=== PATIENT | male | born 1935 | race Caucasian/White ===

== ENCOUNTER 2017-06-14 08:50 | Inpatient (IN) ==
[~2017-06-14 08:50] MED LIST: DEXAMETHASONE 0.1% EACH EYE ONE; EPHEDRINE 50mg/ml INJECTION IM ONE; EYE EACH EYE ONE; FentaNYL 100 MCG/2 ML INJECTION IVP ONE; GLYCOPYRROLATE 0.4 MG/2 ML INJECTION IVP ONE; HYDRALAZINE 20 MG/ML INJECTION IVP ONE; LACRI-LUBE EYE OINT 3.5gm EACH EYE ONE; LIDOCAINE 2% JELLY Tube 30ml MM ONE; PROPOFOL 200 MG/20 ML INJECTION IVP ONE; ROCURONIUM 50 MG/5 ML INJECTION IVP ONE; SUCCINYLCHOLINE 20mg/mL 10mL INJECTION IVP ONE
[2017-06-14 09:06] VITALS: BMI 27.8
[2017-06-14] MEDS: LR 1,000 ML IV SCH ×2 (09:50→15:24)
[2017-06-14] MEDS ORDERED: NS 1,000 ML IV SCH ×2 (10:00→18:39)
--- NOTE | 2017-06-14 11:07 | Anesthesia Preoperative Report ---
Anesthesia Preoperative Record - Date and Time Date: 06/14/17 Preoperative Diagnosis: Colon Cancer. C18.9 Proposed Procedure: robotic sigmoid colon resection. possible low anterior. ureteral catheter insertion. NPO Since Date: 06/14/17 NPO Since Time: 00:00 Allergies/Adverse Reactions: Allergies Allergy/AdvReac Type Severity Reaction Status Date / Time SUSU Inhibitors Allergy Unknown Verified 06/14/17 09:27 benazepril Allergy Unknown Verified 06/14/17 09:27 amoxicillin AdvReac Intermediate DIZZY Verified 06/14/17 09:27 Iwnvkis-Ydk-Vlb Reductase AdvReac Intermediate LEG Verified 06/14/17 09:27 Inhibitor DISCOMFORT - Vital Signs Vital Signs: Temperature 97.7 F 06/14/17 09:05 Pulse Rate 58 L 06/14/17 09:05 Respiratory Rate 18 06/14/17 09:05 Blood Pressure 124/97 H 06/14/17 09:05 Pulse Oximetry 96 06/14/17 09:05 Oxygen Delivery Method Room Air Height and Weight: Height 5 ft 10.5 in Weight 89.4 kg Body Mass Index 27.8 - Medications Inpatient Medications: Current Medications Heparin Sodium (Porcine) (Heparin Sq) 5,000 units SQ [employer] ONE Stop: 06/14/17 14:49 Last Admin: 06/14/17 10:55 Dose: 5,000 units Lactated Ringer's (Lactated Ringers) 1,000 mls @ 30 mls/hr IV .Q24H [facility] Last Admin: 06/14/17 09:50 Dose: 30 mls/hr Ertapenem 1 g/ Sodium Chloride 100 mls @ 200 mls/hr IV PREOP ONE Stop: 06/15/17 11:29 Sodium Chloride (Normal Saline) 1,000 mls @ 50 mls/hr IV .Q20H [facility] Last Admin: 06/14/17 10:00 Dose: 50 mls/hr Lidocaine HCl (Xylocaine-Mpf 1% Vial) 1 mg ID O ONE Stop: 06/14/17 14:44 Last Admin: 06/14/17 09:50 Dose: 1 mg Home Medications: Home Medications Medication Instructions Recorded Confirmed Type Aspirin [Adult Low Dose Aspirin EC] 81 mg PO DAILY 05/26/17 06/14/17 History Carvedilol 12.5 mg PO BID 05/26/17 06/14/17 History Cetirizine HCl [Zyrtec] 10 mg PO DAILY 05/26/17 06/14/17 History Multivitamin [Multivitamins] 1 cap PO DAILY 05/26/17 06/14/17 History [place]-3/Dha/Epa/Fish Oil [Fish Oil 3,000 mg PO BID 05/26/17 06/14/17 History 1,000 mg Softgel] Omeprazole [Prilosec] 5 mg PO DAILY 05/26/17 06/14/17 History Triamcinolone 0.1% Cream 15 G 1 applicatio TOP DAILY 05/26/17 06/14/17 History [Kenalog] Is Patient on Beta Mabel?: Yes - Medical History Respiratory: Reports: Other (some SOA with moderate exertion) Cardiovascular: Reports: Arrhythmia (frequent PAC's ), High Cholesterol, Valvular Heart Disease ("leaky valve"), Other (describes possible orthostatic hypotension recently.) Gastrointestional: Reports: Gastroesophageal Reflux Disease (well controlled with meds.), Gastrointestinal Bleeding Neuro/Musculoskeletal: Denies: HX.MS.OSAR, Back Problems, Cerebrovascular Accident, Depression, Headaches, Loss of Consciousness, Muscle Weakness, Neuromuscular Disorder, Paralysis, Paresthesia, Syncope, Seizures, Other Renal/Endocrine: DENIES: Diabetes Mellitus Type 1, Diabetes Mellitus Type 2, Renal Failure, Dialysis, Thyroid Disease, Weight Loss, Weight Gain, Other - Surgical History HEENT Surgeries: Reports: Nose Surgery (SINUS) GI Surgery/Treatments: Reports: Colonoscopy, Other (left inguinal hernia repair) Musculoskeletal Surgery/Tx: Reports: Total Knee Replacement (RIGHT), Other (R AND LEFT GREAT TOENAIL) Anesthesia Reactions: None Hx Family Anesthesia Reaction: No History of Motion Sickness: No - Social History Smoking Status: Never smoker Substance Use Type: does not use - Pertinent Findings Laboratory: CBC and BMP 06/14/17 09:29 06/14/17 09:29 BMP 06/14/17 09:29 Sodium 143 Potassium 3.9 Chloride 107 Carbon Dioxide 23 BUN 9.0 Creatinine 0.9 Glucose 105 Calcium 9.5 Liver Function 06/14/17 Range/Units 09:29 Total Bilirubin 0.70 (0.20-1.30) MG/DL AST 24 (17-59) U/L ALT 29 (21-72) U/L Alkaline Phosphatase 70 (38-126) U/L Albumin 4.5 (3.5-5.0) G/DL EKG Rhythm: Normal Sinus Rhythm, Sinus Bradycardia, Premature Atrial Contractions (with compensatory pause.) - Physical Exam Respiratory Exam: Present: lungs clear, bilateral breath sounds equal Cardiovascular Exam: Present: regular rate and rhythm, no murmur - Airway Assessment Mallampati Score: II TMD: 3 Fingerbreadths Neck Extension: fair Overall Assessment: no airway concerns - ASA ASA Score: 2 - Plan Anesthesia: General Inhalation Gases - Discussion Discussion: Discussed risks/options/alternatives of anesthesia and questions answered. Patient consents. Nursing pain assessment noted. Present for Discussion: children Attestation Statement: Prior to the delivery of any anesthetic medication, I examined the patient, developed the plan, obtained the patient's consent and discussed the risk and benefits of the procedure with the patient/guardian. - Additional Information Seen by Anesthesia: Yes
[2017-06-14] MEDS ORDERED: BUPIVACAINE 0.25%/EPI 1:200,000 30ml SDV SQ ONE (12:53)
[2017-06-14] MEDS ORDERED: FentaNYL 100 MCG/2 ML INJECTION ONE ×2 (14:17→14:52)
[2017-06-14] MEDS ORDERED: ONDANSETRON 4 MG/2 ML INJECTION IVP PRN (14:30)
[2017-06-14] MEDS ORDERED: HYDROMORPHONE 2 MG/ML INJECTION IVP PRN (14:30)
[2017-06-14] MEDS ORDERED: LIDOCAINE 1% (10mg/ml) 2mL INJ PF SDV ID ONE (14:43)
[2017-06-14] MEDS ORDERED: HEPARIN SUB-Q 5,000 UNITS/0.5 ML INJECTION SQ ONE (14:48)
[2017-06-14] MEDS ORDERED: HYDROMORPHONE 2 MG/ML INJECTION ONE (15:59)
[2017-06-14] MEDS ORDERED: INDOCYANINE GREEN 25mg INJECTION IVP ONE (16:45)
[2017-06-14] MEDS ORDERED: FLUORESCEIN IVP ONE (17:02)
--- NOTE | 2017-06-14 17:58 | General Surgery Procedure Note ---
Date of Procedure: 06/14/17 Surgeon: [employer] Chemist: Ashutosh Uribe APRN Postoperative Diagnosis: Sigmoid colon cancer, liver nodule Procedure: Robotic with conversion to open low anterior resection with splenic flexure takedown and excisional biopsy liver nodule Estimated Blood Loss: See Anesthesia Record.
[2017-06-14] MEDS ORDERED: METOCLOPRAMIDE 10mg/2ml INJECTION IVP PRN (18:39)
[2017-06-14] MEDS ORDERED: MORPHINE SULFATE 2mg INJECTION IVP PRN (18:39)
[2017-06-14] MEDS ORDERED: HYDROCODONE/APAP 5mg/325mg TABLET PO PRN (18:39)
[2017-06-14] MEDS ORDERED: HYDROMORPHONE PCA 30mg/30ml VIAL IV PRN (18:39)
--- NOTE | 2017-06-14 18:46 | Anesthesia Postoperative Note ---
- Date and Time Date: 06/14/17 Time: 18:45 - Status Patient Participated in Evaluation: Patient Participated in Person Vital Signs: Temperature 97.0 F 06/14/17 18:35 Pulse Rate 76 06/14/17 18:40 Respiratory Rate 13 06/14/17 18:40 Blood Pressure 197/86 H 06/14/17 18:40 Pulse Oximetry 94 06/14/17 18:40 Oxygen Delivery Method Room Air Oxygen Flow Rate 4 Respiratory Function: Airway Patent, Regular Respirations Cardiovascular Function: Regular Pulse Mental Status: Alert and Oriented Pain Intensity: 4 Hydration: IV Infusing Complications During Recover: None Apparent - Follow-Up Instructions Instructions: Per Surgeon
[2017-06-14] MEDS: KETOROLAC 15 MG/ML INJECTION IVP PRN (18:49)
[2017-06-14] MEDS: CARVEDILOL 12.5 MG TABLET PO SCH ×2 (19:58→20:11)
[2017-06-14] MEDS: ONDANSETRON 4 MG/2 ML INJECTION IVP PRN (20:11)
[2017-06-14] MEDS: D5-1/2NS with KCL 20mEq 1,000 ML IV SCH (23:01)
[2017-06-15] MEDS: D5-1/2NS with KCL 20mEq 1,000 ML IV SCH ×3 (07:40→17:02)
--- NOTE | 2017-06-15 07:59 | Operative Note ---
DATE OF PROCEDURE: June 14, 2017 PREOPERATIVE DIAGNOSIS: Colon cancer. POSTOPERATIVE DIAGNOSIS: Colon cancer. PROCEDURE PERFORMED 1. Placement of bilateral ureteral stents. 2. Cystoscopy. SURGEON: Cameron Nevarez MD COMPLICATIONS: None. DRAINS 1. Bilateral ureteral stents. 2. 14 [place] Evans INDICATION FOR THE PROCEDURE This is an 82-year-old male with colon cancer who is undergoing a robotic colectomy with Dr. Sanon. I was asked by Dr. Sanon to place bilateral illuminating IRIS stents to help identify the ureters during the procedure. DESCRIPTION OF PROCEDURE The patient was identified in the preoperative holding area. The procedure was explained to him and he agreed to proceed. He was taken to the operating room where he was placed supine on the operating table. General anesthesia was induced. He was then placed in dorsal lithotomy position. The genitalia were prepped and draped in the usual fashion. At this time a formal Time-out was done. All the persons in the room were in agreement* I started the procedure by introducing a rigid cystoscope in the bladder. The 2 UOs were in orthotopic position. I began on the left side. The IRIS ureteral stent was placed over a sensor wire into the right ureter. I then advanced the stent without difficulty to the double marking. Once this was done, I removed the cystoscope from the bladder, making sure the stent was still in the ureter. I then reintroduced the cystoscope and repeated the same procedure on the right side. Also, the IRIS stent was placed over the sensor wire in the right ureter. It was advanced to the double vidya. I then removed the cystoscope, making sure that both stents were still in the ureters. The electrode part was then placed in each stent in order to illuminate the stents. I then placed a 14 -Green[place]ic Evans in the bladder and secured to the two stents with a silk. This concludes the urologic portion of the procedure. The care of the patient was handed back to Dr. Sanon to perform his colectomy. NGHIA
[2017-06-15] MEDS: ENOXAPARIN 40 MG/0.4 ML INJECTION SQ SCH (08:55)
[2017-06-15] MEDS: PANTOPRAZOLE 40 MG INJECTION IVP SCH (08:55)
[2017-06-15] MEDS: TRIAMCINOLONE 0.1% CREAM 15 G TUBE TOP SCH (08:56)
[2017-06-15] MEDS: CARVEDILOL 12.5 MG TABLET PO SCH ×2 (08:56→17:23)
--- NOTE | 2017-06-15 08:57 | General Surgery Progress Note ---
Subjective Patient reports: still having pain (as expected, long midline incsioni plus trocar sites), no flatus, afebrile Narrative: In the chair this morning, complains of back pain but a pillow behind the back helped. Denies nausea. No flatus or stool. Denies chest pain, SOA. Hypertensive last evening till after the prescribed home Coreg was given. A little hypertensive again this am, Coreg has not been given yet. Urine very dark/maroon, 90 ml in the last 2 hours after he got up. He did have bilateral ureteral stents prior to resection. - Vital Signs Last Vital Signs Temp 97.8 F 06/15/17 04:01 Pulse 57 L 06/15/17 07:50 Resp 26 H 06/15/17 04:45 BP 131/63 06/15/17 04:01 Pulse Ox 97 06/15/17 04:45 - Laboratory Result Diagrams: 06/15/17 04:19 06/15/17 04:19 - Abnormal Exam Respiratory: other (crackles bilateral bases) Cardiovascular: murmur, irregular rhythm (occasional PVC otherwise RSR) Abdominal: hypoactive bowel sounds Male: other (urine dark/maroon, output 25-45/hr over the last 5-6 hours.) - Normal Exam General: no acute distress Respiratory: no labored breathing (sat 97% on room air) Abdominal: appropriately tender (long midline incision), incision(s) (dressings in tact, not removed today) Psychiatric: normal affect Assessment and Plan (1) Cancer of sigmoid colon Current Visit: Yes Status: Acute (2) HTN (hypertension) Current Visit: No Status: Chronic Qualifiers: Hypertension type: essential hypertension Qualified Code(s): I10 - Essential (primary) hypertension (3) Atelectasis pulmonary Current Visit: Yes Status: Acute (4) Cardiac arrhythmia Current Visit: No Status: Chronic Qualifiers: Arrhythmia type: other cardiac arrhythmia Qualified Code(s): I49.8 - Other specified cardiac arrhythmias (5) Hypercholesterolemia Current Visit: No Status: Chronic (6) Murmur, cardiac Current Visit: Yes Status: Chronic Plan: 06/15 POD#1 Doing well for the long difficult surgery yesterday. HTN during the night till Coreg was given. Urine very dark, from ureteral stents, cleared up after bladder irrigation. Crackles bilaterally, Sat 97% room air, encourage IS, Acapella, breathing treatment, etc, RT has been consulted Will watch the urine output/color, HTN, Resp status, etc, Daily labs. Keep in CCU today. Hospital Course Summary Disclaimer: The visit summary below is not to be considered part of the above Progress Note. Hospital Course: 06/15/17 09:19 POD#1 Doing well for the long difficult surgery yesterday. HTN during the night till Coreg was given. Urine very dark, from ureteral stents, cleared up after bladder irrigation. Crackles bilaterally, Sat 97% room air, encourage IS, Acapella, breathing treatment, etc, RT has been consulted Will watch the urine output/color, HTN, Resp status, etc, Daily labs. Sepsis Assessment - Evaluation Sepsis screening result: No Definite Risk
[2017-06-15] MEDS: ONDANSETRON 4 MG/2 ML INJECTION IVP PRN (09:28)
--- NOTE | 2017-06-15 10:19 | Operative Note ---
DATE OF PROCEDURE 06/14/2017 SURGEON Cornelio Sanon MD [employer]RE[employer] DISPATCHER Ashutosh Uribe APRN PREOPERATIVE DIAGNOSIS Adenocarcinoma involving distal sigmoid colon. POSTOPERATIVE DIAGNOSIS Adenocarcinoma involving distal sigmoid colon. PROCEDURE Attempted robotic laparoscopic low anterior with conversion to open procedure, with completion of low anterior resection, coloproctostomy, mobilization of splenic flexure, wedge liver biopsy. ANESTHESIA General endotracheal EBL AND FLUIDS Please see chart. DESCRIPTION OF PROCEDURE Mr. Roberts is an 82-year-old gentleman who recently had noted a component of some rectal bleeding. He did present to his primary care physician who appropriately proceeded with endoscopic evaluation. Unfortunately, the patient was found to have a mass at about 15-20 cm from the anal verge. This mass was highly suspicious for that of an adenocarcinoma. Biopsies were obtained from the mass and, unfortunately, did confirm the suspicion that he did indeed have a colonic malignancy. The patient did undergo preoperative evaluation including a CT scan of his chest, abdomen and pelvis. There was no evidence for metastatic disease. The patient presents today to undergo surgical management of his newly diagnosed colonic adenocarcinoma. For completeness, please refer to notes included in the patient's chart. DESCRIPTION OF PROCEDURE After informed consent was obtained, the patient was brought to the operative suite and placed on the table in lithotomy position. Ureteral stents were placed preoperatively to facilitate identification of the ureters. This portion of the procedure will be dictated by Dr. Nevarez. Once Dr. Nevarez had completed his portion of the procedure, the abdomen was prepped and draped in sterile fashion. Formal time-out was then completed. 0.25% Marcaine with epinephrine was injected just beneath the left subcostal margin. 4-5 mm incision was then made through the area of analgesia. A Veress needle was then introduced through this small incision and into the peritoneal cavity through the small left subcostal incision. Pneumoperitoneum was established to a patient pressure of 15 mmHg utilizing carbon dioxide. A 12-mm camera port was then placed about 4-5 cm cephalad and to the right of the umbilicus. Laparoscope was then inserted and one could see the Veress needle as it coursed through the anterior abdominal wall. Veress needle was then removed. An 8-mm port was then placed within the left upper quadrant. An additional 8 mm port was then placed along the left lateral abdominal wall. A 5-mm assist port was then placed within the right mid abdominal wall. Lastly, a stapler port was then placed within the right lower quadrant of the anterior abdominal wall. Each port site was preinjected with 0.25% Marcaine with epinephrine and placed under direct visualization. The patient was then placed in Trendelenburg position and rotated towards his right. One could see that there was a segment of sigmoid colon that was adherent to the left anterior abdominal wall as well as along the left lateral abdominal wall. One could also see that the sigmoid colon was fairly redundant and "turned upon itself" within the pelvis 180 degrees as a result of this redundancy. Additionally, the abdomen was explored via laparoscope. Devonte's capsule was smooth without nodularities with the exception that there was a small whitish nodule noted just to the right of the falciform ligament along the inferior edge of the right lobe of the liver. Next , the robot was then docked overlying the patient's left hip at a 45-degree angle. First, attention was focused to the sigmoid colon that was adherent to the anterior abdominal wall. It appeared that perhaps the patient had had a bout of diverticulitis in the past as a result of these intraoperative findings. Sigmoid colon was dissected away from the anterior abdominal wall as well as along the left lateral abdominal wall. Next, the redundant portion of the sigmoid colon was able be dissected away and lifted up into the upper abdomen. A Graptor retractor was placed through robotic arm 3 along the left lateral abdominal wall. Sigmoid colon was grasped via this instrument and retracted in a cephalad and lateral fashion. Fluorescence Firefly imaging was then performed. One could see the right ureter quite easily beneath the peritoneal surface. It did fluoresce quite well. One could trace the catheter as it coursed up into the bladder beneath the peritoneum utilizing fluorescence imaging. Unfortunately, the left ureteral catheter did not appear to be in the left ureter and one could not see any fluorescence in the anatomic location of the left ureter. First, attention was focused along the right mesorectum at about the level of the sacral promontory. Peritoneum was incised at this location. Presacral space was identified. A bipolar grasper was placed within the presacral space and the mesorectum was lifted anteriorly. Presacral space was then dissected out along the right lateral mesorectum posteriorly within the midportion of the mesorectum. Dissection was carried down towards the pelvic floor to the level of the peritoneal reflection. Next, the left lateral aspect of the mesorectum was then began to be dissected out carefully and meticulously. One could see the iliac vein as the mesorectum was being dissected out laterally to the left. The presacral space/propria tissue plane then began to obliterate as one began to come up onto the anatomic location of the ureter. It appeared that there perhaps were some inflammatory changes present at this location. Next, I elected to proceed with dissection along the left mesorectum. Mesorectum out laterally on the left was then incised with electrocautery. The rectum was then reflected from the patient's left to his right. Dissection was then begun cephalad to the anatomic location of the iliac vessels along the white line of Toldt. White line of Toldt was incised and the left colon was reflected medially. One could see Gerota's fascia and the colon was continued to be dissected away from Gerota's fascia and reflected medially. Unfortunately, the tissue plane between the sigmoid colon and left iliac vessels was very difficult to identify. There appeared to be some inflammatory changes present at this location. I did spend a moderate amount of time trying to identify the left ureter as the sigmoid colon was being reflected medially to the patient's left. This was unable to be accomplished and I then went back posterior to the mesorectum and again tried to dissect out the left lateral pelvic wall from a posterior to anterior fashion. Further dissection was carried out but again as one approached the iliac vessel region the tissue plane began to become more difficult to ascertain. At this time I felt that I had reached somewhat of a "stalemate" and the procedure was not progressing as rapidly as I had hoped. Given the difficulty in the progression of the procedure and the difficulty in identifying anatomy, I elected to convert to an open procedure. Robot was then undocked. Pneumoperitoneum released. A standard midline incision was then made from the pubic symphysis up to and into the epigastric region. Underlying subcutaneous tissues, fascia and peritoneum was then opened to the extent of the procedure. Next, a Codman retractor was placed to provide adequate exposure. Upon entering the abdominal wall, I was somewhat discouraged in the fact that there appeared to be only perhaps about another 5-8 mm of tissue still persisting between the posterior mesorectum dissection and the dissection that had been carried out on the patient's left along the mesorectum. Attention was focused back towards the anatomic location of the iliac vessels. With careful and meticulous dissection , I was able to dissect the sigmoid colon away from the iliac vessels. One then could identify the left ureter. The left ureter was somewhat tented up against the mesorectum and I was therefore thankful that I had converted to an open procedure. The left ureter was identified and was gently/bluntly dissected to the patient's left as the mesorectum and sigmoid colon was continued to be reflected medially. At this point in time a total mesorectal dissection had been performed circumferentially. The superior hemorrhoidal vessels remained to be intact just above the sacral promontory. Attention was then directed towards division of the proximal resection line. One could see several diverticula within the sigmoid colon region. I elected to go ahead and proceed with resection of the of the sigmoid apparent diverticular disease in conjunction with the palpable tumor which was present involving the distal sigmoid:. A point perhaps 15-20 cm proximal to the tumor was ascertained upon the mid sigmoid colon region. Small opening was then created within mesentery at this location. Colon was then transected at this location with a OBDULIO 55 stapler. Next, the mesentery to the sigmoid colon was then sequentially divided between right angle clamps towards the sacral promontory. Superior hemorrhoidal vessels were then divided between right angle clamps and doubly ligated with 0 Vicryl ties. Next, a point was then ascertained for the distal resection line. A point perhaps 8 cm beyond the visible/palpable tumor was obtained just beneath the peritoneal reflection upon the mid rectum. A small opening was then created within the mesorectum at this location. Contour stapler was then placed across the rectum at this location and fired. Next, the remaining mesorectum was then sequentially divided between right angle clamps deep within the pelvis and ligated with 0 Vicryl ties. Proximal rectum and sigmoid colon was then passed off the table as a surgical specimen. I did have the circulating nurse open the specimen on the back table. One could see the tumor clearly within the midportion of the specimen. The two staple lines were then attempted be brought forth adjacent to one another. There was some tension to get this accomplished. Therefore elected to proceed with takedown of the splenic flexure. The incision was extended further into the epigastric region. The white line of Toldt was then continued to be incised along the left pericolic gutter up to the splenic flexure. The gastrocolic ligament was then divided at the location of the splenic flexure. Splenocolic ligament was then divided with electrocautery under direct visualization. This resulted in complete mobilization of the splenic flexure. Now the proximal staple line could be brought forth into the pelvis and laid adjacent to the remaining rectum without any evidence of tension. Additionally, the left colon was continued be reflected medially off of Gerota's fascia. Next, attention was then focused towards this small nodule that was noted just to the right of falciform ligament upon the inferior edge of the liver. This small nodule that was on the order of about 5-8 mm in diameter was excised utilizing electrocautery in a standard wedge technique. This nodule was then passed off the table as a surgical specimen. Liver was hemostatic in nature. Attention was then directed towards completion of the anastomosis. Had Anesthesia give the patient 3 ml of ICG intravenously. A few moments were allowed to elapse. The da Marcia laparoscopic camera was still upon the surgical field. Utilized the camera to assess the vascular supply to the proximal staple line. The colon did fluoresce quite well down to the staple line. There was no evidence for vascular compromise. Next, attention was then directed towards the proximal staple line. Proximal staple line was transected with a knife. The edges of the colon bled indicative again of an adequate blood supply. Three Allis clamps were then placed upon the transected end of the colon. Up to a 28 mm EEA sizer was able to be placed within the colon without difficulty. 29-mm EEA stapler was then brought forth to the operative field. Anvil portion of the stapler was placed within the transected end of the colon. A pursestring suture was then placed with 2-0 Vicryl and tied securely resulting in a nice imbrication of the colonic mucosa to the anvil portion of the stapler. Next, I had my information assistant then advance the stapler through the patient's anal verge and up to the distal staple line upon the rectum. The trocar portion of the stapler was then allowed to exit just anterior to the staple line within the midportion of the rectum. Anvil portion was then attached to the trocar portion and tightened to the appropriate tension and fired. Stapler was then released and removed from the patient's anal verge. Two complete doughnuts were present within the stapler. Saline was then placed within the pelvis. I then had my information assistant place a rigid proctoscope within the rectum and insufflate the colon until the anastomosis was quite taut with air. At no point in time was there any evidence for extravasation of air bubbles from the anastomosis, i.e. the anastomosis was airtight. Air was then released through the rigid proctoscope and the rigid proctoscope was then removed. Prior areas of dissection were inspected and found to be hemostatic in nature. Attention was then directed towards closure. Sponge count, instrument count and needle count were performed and found to be correct. New gowns and gloves were obtained. Fascia was closed in a running fashion with #1 PDS. Skin was then closed with rubén. The fascia at the camera port and the stapler port was closed in a [id number] fashion with 0 Vicryl. The patient has awakened from his anesthetic and currently is in ICU in stable condition. Additionally, it should be noted that Ashutosh Uribe APRN, was present throughout the entire case and played a pivotal role in providing assistance and exposure during the course of the procedure. [facility]
[2017-06-15] MEDS ORDERED: ERTAPENEM 1 G in NS 100 ML IV ONE (11:00)
--- NOTE | 2017-06-15 14:20 | Progress Note ---
DATE 06/15/2017 FINDINGS Mr. Roberts this morning was in good spirits. He states that he does have some incisional discomfort which is aggravated by doing incentive spirometry. He did not appear to be in acute distress. VITALS: Afebrile. Normotensive. Please refer to EMR. OUTPUT: Urinary output has been marginal. CHEST: Clear to auscultation. HEART: Rate and rhythm. ABDOMEN: Soft. Incisional tenderness noted upon palpation. LABORATORY/RADIOGRAPH EVALUATION White count was elevated at 18.1 - most likely stress related from surgery. Hemoglobin stable at 13.5. BMP obtained and found to be without marked abnormalities. ASSESSMENT 82-year-old gentleman status post low anterior resection, coloproctostomy, takedown and mobilization of splenic flexure, wedge liver biopsy. Overall patient doing well. PLAN Will give a normal saline bolus secondary to his low urinary output. If patient does not respond to a fluid bolus, will then give diuretic. Will begin clear liquids. Otherwise, continue with current care. I am pleased with the patient's appearance this morning. NGHIA
[2017-06-15] MEDS: KETOROLAC 15 MG/ML INJECTION IVP PRN (15:55)
[2017-06-15] MEDS ORDERED: BUMETANIDE 2.5mg/10ml INJECTION IVP ONE (19:10)
[2017-06-16] MEDS: D5-1/2NS with KCL 20mEq 1,000 ML IV SCH ×3 (01:30→18:03)
[2017-06-16] MEDS ORDERED: MAG-AL + SIM ORAL LIQUID 30ml PO PRN (03:01)
[2017-06-16] MEDS ORDERED: SALINE FLUSH 10ml SYRINGE IV PRN (03:15)
[2017-06-16] MEDS ORDERED: Bisacodyl EC TAB 5 MG TABLET PO ONE (07:49)
--- NOTE | 2017-06-16 07:53 | General Surgery Progress Note ---
Subjective Patient reports: still having pain, pain is less, tolerating liquids well, no flatus, no bowel movement, other ("heartburn" relieved with Maalox) Narrative: He is real "jumpy", tenses up even before the stethoscope touches the abd or chest. Denies chest pain, SOA. Sats 95% room air, crackles at the bases, using IS and Acapella. Ambulating the length of the CCU. Urine output picked up after fluid bolus then Bumex and is now clear light yellow, > 60 ml/hr for the last 10 hours. - Vital Signs Last Vital Signs Temp 97.8 F 06/16/17 04:00 Pulse 76 06/16/17 06:00 Resp 15 06/16/17 06:00 BP 151/72 H 06/16/17 06:00 Pulse Ox 95 06/16/17 06:00 - Laboratory Result Diagrams: 06/16/17 04:35 06/16/17 04:35 - Abnormal Exam Respiratory: other (crackles bilateral bases) Cardiovascular: murmur Abdominal: hypoactive bowel sounds (very rare), voluntary guarding (tenses up even before stethoscope touches abd and states "I'm just jumpy.") - Normal Exam General: no acute distress Cardiovascular: regular rhythm (with only occasional rare PVC and PAC), regular rate Abdominal: appropriately tender, incision(s) (dressings intact, not removed today.) Assessment and Plan (1) Cancer of sigmoid colon Current Visit: Yes Status: Acute (2) HTN (hypertension) Current Visit: No Status: Chronic Qualifiers: Hypertension type: essential hypertension Qualified Code(s): I10 - Essential (primary) hypertension (3) Atelectasis pulmonary Current Visit: Yes Status: Acute (4) Cardiac arrhythmia Current Visit: No Status: Chronic Qualifiers: Arrhythmia type: other cardiac arrhythmia Qualified Code(s): I49.8 - Other specified cardiac arrhythmias (5) Hypercholesterolemia Current Visit: No Status: Chronic (6) Murmur, cardiac Current Visit: Yes Status: Chronic Plan: He is making progress, but no bowel activity. Denies nausea, will allow Breeze and Boost with the clear liquids. Dulcolax tabs PO x1 today, hope to gently stimulate bowel activity. VSS, Labs reviewed He is ambulating the length of the CCU Will consider transfer to surgical floor. PT/OT ordered for strength and endurance. Hospital Course Summary Disclaimer: The visit summary below is not to be considered part of the above Progress Note. Hospital Course: 06/15/17 09:19 POD#1 Doing well for the long difficult surgery yesterday. HTN during the night till Coreg was given. Urine very dark, from ureteral stents, cleared up after bladder irrigation. Crackles bilaterally, Sat 97% room air, encourage IS, Acapella, breathing treatment, etc, RT has been consulted Will watch the urine output/color, HTN, Resp status, etc, Daily labs. 06/15 82-year-old gentleman status post low anterior resection, coloproctostomy, takedown and mobilization of splenic flexure, wedge liver biopsy. Overall patient doing well. PLAN Will give a normal saline bolus secondary to his low urinary output. If patient does not respond to a fluid bolus, will then give diuretic. Will begin clear liquids. Otherwise, continue with current care. I am pleased with the patient's appearance this morning. 06/16/17 07:56 06/16/17 07:59 POD #2 He is making progress, but no bowel activity. Denies nausea, will allow Breeze and Boost with the clear liquids. Dulcolax tabs PO x1 today, hope to gently stimulate bowel activity. VSS, Labs reviewed He is ambulating the length of the CCU Will consider transfer to surgical floor. PT/OT ordered for strength and endurance. Sepsis Assessment - Evaluation Sepsis screening result: No Definite Risk
[2017-06-16] MEDS: CARVEDILOL 12.5 MG TABLET PO SCH ×2 (08:29→17:15)
[2017-06-16] MEDS: CETIRIZINE 10 MG TABLET PO SCH (08:29)
[2017-06-16] MEDS: ENOXAPARIN 40 MG/0.4 ML INJECTION SQ SCH (08:30)
[2017-06-16] MEDS: PANTOPRAZOLE 40 MG INJECTION IVP SCH (08:31)
[2017-06-16] MEDS: TRIAMCINOLONE 0.1% CREAM 15 G TUBE TOP SCH ×2 (08:31→08:42)
--- NOTE | 2017-06-16 14:02 | Progress Note ---
DATE 06/16/2017 FINDINGS Mr. Roberts states he is feeling better today. He is having less incisional discomfort. EXAM VITALS: Afebrile. Normotensive. Please refer to EMR. CHEST: Clear to auscultation bilaterally. HEART: Regular rate and rhythm. Normal S1, S2, without gallops, murmurs or clicks. ABDOMEN: Palpation of the abdomen still reveals incisional tenderness. There is no evidence for guarding or rebound. LABORATORY/RADIOGRAPHIC EVALUATION The patient had a CBC today and his white count is on a downward trend at 11.4. Hemoglobin overall is stable at 12.1. BMP obtained and found be without marked abnormalities. ASSESSMENT 82-year-old gentleman status post low anterior resection with coloproctostomy, mobilization of splenic flexure, and wedge liver biopsy secondary to invasive adenocarcinoma involving rectosigmoid region. Patient stable/improving. PLAN Will continue with current care. Will likely transfer the patient out of ICU tomorrow and advance diet slowly. I'm overall pleased with the patient's progress at this time. [facility]
[2017-06-17] MEDS: D5-1/2NS with KCL 20mEq 1,000 ML IV SCH ×4 (01:57→23:11)
[2017-06-17] MEDS ORDERED: IBUPROFEN 600 MG TABLET PO PRN (07:36)
[2017-06-17] MEDS: TRIAMCINOLONE 0.1% CREAM 15 G TUBE TOP SCH (08:01)
[2017-06-17] MEDS: CETIRIZINE 10 MG TABLET PO SCH (08:01)
[2017-06-17] MEDS: ENOXAPARIN 40 MG/0.4 ML INJECTION SQ SCH (09:20)
[2017-06-17] MEDS: POLYETHYL GLYCOL 3350 17gm PACKET PO SCH ×2 (09:22→09:32)
[2017-06-17] MEDS: PANTOPRAZOLE 40 MG INJECTION IVP SCH (09:22)
[2017-06-17] MEDS: CARVEDILOL 12.5 MG TABLET PO SCH ×2 (09:22→18:16)
--- NOTE | 2017-06-17 11:31 | General Surgery Progress Note ---
Subjective Patient reports: feels better, pain is less, flatus, no bowel movement Narrative: In good spirits. He coughed up a thick yellow chunk of mucous, will send this for culture. He is faithfully using IS and Acapella. Denies nausea, chest pain, SOA. Is still quite "jumpy", just my the back of my hand brushing across the lateral abd to move blanket away made him jump and tense and grab for the SENIOR MECHANICAL TECHNICIAN. - Vital Signs Last Vital Signs Temp 97.1 F 06/17/17 08:00 Pulse 70 06/17/17 08:16 Resp 16 06/17/17 08:00 BP 176/72 H 06/17/17 08:00 Pulse Ox 96 06/17/17 08:00 - Laboratory Result Diagrams: 06/17/17 04:16 06/17/17 04:16 - Abnormal Exam Respiratory: other (crackles bilateral bases) Cardiovascular: murmur Abdominal: voluntary guarding - Normal Exam Abdominal: BS normo active x4, soft, appropriately tender, incision(s) ( dressing removed, dried blood on dressing with caudad most 1/4 mostly saturated , dry gauze applied) Assessment and Plan (1) Cancer of sigmoid colon Current Visit: Yes Status: Acute (2) HTN (hypertension) Current Visit: No Status: Chronic Qualifiers: Hypertension type: essential hypertension Qualified Code(s): I10 - Essential (primary) hypertension (3) Atelectasis pulmonary Current Visit: Yes Status: Acute (4) Cardiac arrhythmia Current Visit: No Status: Chronic Qualifiers: Arrhythmia type: other cardiac arrhythmia Qualified Code(s): I49.8 - Other specified cardiac arrhythmias (5) Hypercholesterolemia Current Visit: No Status: Chronic (6) Murmur, cardiac Current Visit: Yes Status: Chronic Plan: POD #3 VSS, WBC 8.7, HGB 11.6 Sputum culture collected today, thick yellow/etienne mucous Incision with old blood, no erythema or ecchymosis at this time Evans DC'd this am and he is voiding without difficulty. Tolerating full liquid diet, good bowel sounds, will decrease IVF advance to regular for dinner. DC SENIOR MECHANICAL TECHNICIAN PT recommends daily IP therapy for strengthening and endurance. Hospital Course Summary Disclaimer: The visit summary below is not to be considered part of the above Progress Note. Hospital Course: 06/15/17 09:19 POD#1 Doing well for the long difficult surgery yesterday. HTN during the night till Coreg was given. Urine very dark, from ureteral stents, cleared up after bladder irrigation. Crackles bilaterally, Sat 97% room air, encourage IS, Acapella, breathing treatment, etc, RT has been consulted Will watch the urine output/color, HTN, Resp status, etc, Daily labs. 06/15 82-year-old gentleman status post low anterior resection, coloproctostomy, takedown and mobilization of splenic flexure, wedge liver biopsy. Overall patient doing well. PLAN Will give a normal saline bolus secondary to his low urinary output. If patient does not respond to a fluid bolus, will then give diuretic. Will begin clear liquids. Otherwise, continue with current care. I am pleased with the patient's appearance this morning. 06/16/17 07:56 06/16/17 07:59 POD #2 He is making progress, but no bowel activity. Denies nausea, will allow Breeze and Boost with the clear liquids. Dulcolax tabs PO x1 today, hope to gently stimulate bowel activity. VSS, Labs reviewed He is ambulating the length of the CCU Will consider transfer to surgical floor. PT/OT ordered for strength and endurance. 06/17/17 11:44 POD #3 VSS, WBC 8.7, HGB 11.6 Sputum culture collected today, thick yellow/etienne mucous Incision with old blood, no erythema or ecchymosis at this time Evans DC'd this am and he is voiding without difficulty. Tolerating full liquid diet, good bowel sounds, will decrease IVF advance to regular for dinner. DC SENIOR MECHANICAL TECHNICIAN PT recommends daily IP therapy for strengthening and endurance. 06/17/17 11:47 06/17/17 11:49 Sepsis Assessment - Evaluation Sepsis screening result: No Definite Risk
[2017-06-18] MEDS: D5-1/2NS with KCL 20mEq 1,000 ML IV SCH (03:32)
--- NOTE | 2017-06-18 06:52 | Progress Note ---
DATE 06/17/2017 FINDINGS Mr. Roberts is in good spirits this evening. He states he did have a small bowel movement. He reports having a little less abdominal discomfort--a little less incisional discomfort. VITALS: Afebrile. Normotensive. Please refer to EMR. ABDOMEN: Soft. Incisional tenderness present. No evidence for rebound or guarding. Incisions are clean, dry and intact. LABORATORY/RADIOGRAPH EVALUATION The patient had a CBC today and his white count continues on a downward trend to 8.7. Overall, hemoglobin is stable at 11.6. BMP obtained and found to be essentially within normal limits. ASSESSMENT Status post low anterior resection with coloproctostomy, mobilization of splenic flexure, wedge liver biopsy. The patient is doing well with ongoing improvement. PLAN Pathology did return today. The patient was found to have invasive moderately- differentiated colonic adenocarcinoma. No metastasis identified in 12 regional lymph nodes. 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 No evidence for atypia or malignant neoplasm. Will increase the patient's diet to a regular diet. Armando Evans. Will begin p.o. pain meds. Hopefully, within the next 24-48 hours, the patient will be tolerating a regular diet, his pain will be controlled with p.o. pain meds and he will be able to be discharged at that time. I am pleased with the patient's progress. NGHIA
[2017-06-18 08:28] VITALS: RESP 16; O2SAT 98
--- NOTE | 2017-06-18 09:03 | Discharge Instructions ---
Discharge Plan - Med Rec/Dispo Referrals/Follow Up: Cornelio Sanon MD [Physician] - 06/30/17 2:30 pm Prescriptions: New Hydrocodone/APAP 5/325 [[place] 5/325] 1 - 2 tab PO Q5H PRN #30 tablet PRN Reason: Pain Continue Aspirin [Adult Low Dose Aspirin EC] 81 mg PO DAILY Omeprazole [Prilosec] 5 mg PO DAILY Triamcinolone 0.1% Cream 15 G [Kenalog] 1 applicatio TOP DAILY Carvedilol 12.5 mg PO BID Cetirizine HCl [Zyrtec] 10 mg PO DAILY [place]-3/Dha/Epa/Fish Oil [Fish Oil 1,000 mg Softgel] 3,000 mg PO BID Multivitamin [Multivitamins] 1 cap PO DAILY Discontinued cephALEXin [Keflex] 500 mg PO TID #21 capsule - Disposition 01 Discharged Home, Self-Care
[2017-06-18] MEDS: PANTOPRAZOLE 40 MG INJECTION IVP SCH (09:24)
[2017-06-18] MEDS: POLYETHYL GLYCOL 3350 17gm PACKET PO SCH (09:24)
[2017-06-18] MEDS: ENOXAPARIN 40 MG/0.4 ML INJECTION SQ SCH (09:25)
[2017-06-18] MEDS: CARVEDILOL 12.5 MG TABLET PO SCH (09:26)
[2017-06-18] MEDS: CETIRIZINE 10 MG TABLET PO SCH (09:26)
[2017-06-18] MEDS: TRIAMCINOLONE 0.1% CREAM 15 G TUBE TOP SCH (09:27)
[2017-06-18 11:23] VITALS: BP 159/67; PULSE 60; TEMP 97.3
--- NOTE | 2017-06-18 12:44 | Progress Note ---
DATE 06/18/2017 . FINDINGS Mr. Roberts this morning was in good spirits. He is tolerating a regular diet. He has had a bowel movement. He states his incisional discomfort continues to improve. VITALS: Afebrile. Normotensive. Please refer to EMR. ABDOMEN: Soft. Minimal incisional tenderness. LABORATORY/RADIOGRAPH EVALUATION The patient had a CBC today that was unremarkable. BMP stable. ASSESSMENT 82-year-old gentleman status post low anterior resection with coloproctostomy, mobilization of splenic flexure, wedge liver biopsy. 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 Patient doing quite well. PLAN Discharge to home later this afternoon. I am quite pleased with the patient's progress. I did inform the patient of his excellent pathology results this morning. NGHIA
--- NOTE | 2017-06-19 10:40 | Right on Track Program ---
Right on Track Program Date of Discharge: 06/18/17 Home Medications: Home Medications Medication Instructions Recorded Confirmed Aspirin [Adult Low Dose Aspirin EC] 81 mg PO DAILY 05/26/17 06/14/17 Carvedilol 12.5 mg PO BID 05/26/17 06/14/17 Cetirizine HCl [Zyrtec] 10 mg PO DAILY 05/26/17 06/14/17 Multivitamin [Multivitamins] 1 cap PO DAILY 05/26/17 06/14/17 [place]-3/Dha/Epa/Fish Oil [Fish Oil 3,000 mg PO BID 05/26/17 06/14/17 1,000 mg Softgel] Omeprazole [Prilosec] 5 mg PO DAILY 05/26/17 06/14/17 Triamcinolone 0.1% Cream 15 G 1 applicatio TOP DAILY 05/26/17 06/14/17 [Kenalog] Previous Rx's Medication Instructions Recorded Hydrocodone/APAP 5/325 [[place] 1 - 2 tab PO Q5H PRN #30 tablet 06/18/17 5/325] - Right on Track Program Phone Call 06/19/17 Date: 06/19/17 Right on Track Program: 24 Hour Follow-Up Discharge Summary Received: No Care Plan Received: Yes Follow Up: Follow up Tests Reviewed, Follow Up Appointment Scheduled Education: Diagnosis Education Reviewed Referral: Primary Care Physician Comments: I called Cornelio at home on 06/19/17. He's feeling a bit fatigued but otherwise is doing well. Emporium is controlling his pain. He's taking a stool softener along with it and we discussed constipation risks of narcotics. He's not sure when his f/u appts are scheduled. He has good family support. Recommendations For Follow-up: 1. Will check on f/u appts dates & times. 2. Home visit on 06/19 at 1030. [id number] 06/23/17 Date: 06/23/17 Right on Track Program: 7-14 Day [id number] Discharge Summary Received: No Care Plan Received: Yes Follow Up: Follow Up Appointment Scheduled (Appointments with Dr Sanon and Dr. Harper next week) Education: Diagnosis Education Reviewed, Education Provided To Caregiver Referral: Primary Care Physician, Physical Therapy, Home Health, Other (Dr. Grubbs) Comments: I visited Cornelio at his home in [place] on 06/23/17. His daughter, Roberta (and her ) have come up from [place] to stay with him for a month. Both the patient and Roberta report that he is doing quite well. They don't have any questions about his discharge instructions, and the questions he had about follow up appointments have been resolved. Below is a summary of our conversation: Resources: Cornelio has good family support. When Roberta leaves, another daughter will be coming up to [place] from [place] to stay with him. He also has anabaptism friends who are bringing him meals. His family is driving him to and from appointments, but he intends to start driving again once he's off narcotics and Dr. Sanon clears him - Roberta is perfectly fine with this. Cornelio is very active and still works as a [employer], modifying his activities to accommodate for arthritic pain. 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 He understands his limitations, however, and knows he's not to lift more than 20 lbs postop, and has not been back to the shop yet (though wants to start working soon!). He has 2 years of college education, and has good health literacy scores. Home Health has been coming out regularly. Barriers: Emporium makes him feel "foggy". Since his pain is under good control, he 's going to cut back to 1/2 tablet, or skip it entirely. He knows that the Emporium can make him weak and dizzy, and is willing to do what he can to get back in the shop. Advanced Directives: He has a living will, DPOA, and DNR. Medications: He has an excellent understanding of his medications. He takes a few OTC medications. He has a system in which he keeps all of his pill bottles in a cabinet, and state that this works well for him. He's currently taking [place] 5/325 twice a day - he's going to cut back on this, as above. He is on Colace and has not been constipated. He is on fish oil and ASA 81 mg (he is not anticoagulated). He asked if he could restart his OTC meds for eye health - this contains a variety of vitamins, minerals, and lutein. Depression screen: Negative. However, he's had 2 major life events in the last few months: his of 61 years of metastatic cancer in March, and now he was just diagnosed with cancer. He became tearful on a couple of occasions when talking about his late . He also doesn't like sitting around with limitations on activity - he's eager to get back to work. Fall risk: He's at risk of falls, but is diligent about using his walker. Roberta has already made minor house modifications to minimize fall risks. I reminded him to wear shoes or non-slick socks (which he does). ADLs/IADLs: He was independent in all before surgery and is nearly independent in everything just 9 days postop. Exam: General: A&O x3, no distress, very pleasant and cooperative CV: soft systolic murmur; irregularly irregular rate in the 70s. His skin color was pink; he was warm and dry. [He reports a history of what sounds like paroxysmal A-fib, which has resolved. He has never been on anticoagulants. He sees Dr. Grubbs every 6 months.] Lungs: CTAB Abd: incisions are healing well. Jody in place. No erythema, drainage, or swelling. They put a 4x4 gauze over the area where the elastic band of his sweatpants rubs to try to prevent any irritation. He has good bowel sounds and his abdomen was soft. Ext: No edema. Distal pulses intact. Discussed With Patient and Caregiver: Yes Recommendations For Follow-up: 1. I contacted Mechelle Bauer APRN about his irregular heart rate on exam - she would like him to stop in the office for an EKG. I then called Roberta, and they will stop in while they are in [place] today for his f/u appointment with Dr. Urena (for his finger fx). 2. F/U with Dr. Sanon and Dr. Harper next week, as planned. I directed questions about activity and driving to Dr. Sanon. 3. May need to follow up on depression at PCP's visit. 4. No contraindications to resuming his medication for eye health.
--- NOTE | 2017-08-24 19:31 | Discharge Summary ---
Discharge Information Date of admission: 06/14/17 08:50 Attending Physician: Cornelio Sanon MD Primary care physician: Lalito Harper MD Assessment and Plan (1) Cancer of sigmoid colon Current Visit: Yes Status: Acute (2) HTN (hypertension) Current Visit: No Status: Chronic Qualifiers: Hypertension type: essential hypertension Qualified Code(s): I10 - Essential (primary) hypertension (3) Atelectasis pulmonary Current Visit: Yes Status: Acute (4) Cardiac arrhythmia Current Visit: No Status: Chronic Qualifiers: Arrhythmia type: other cardiac arrhythmia Qualified Code(s): I49.8 - Other specified cardiac arrhythmias (5) Hypercholesterolemia Current Visit: No Status: Chronic (6) Murmur, cardiac Current Visit: Yes Status: Chronic - Laboratory Labs: 06/18/17 04:26 06/18/17 04:26 Laboratory Tests 06/14/17 06/14/17 06/18/17 09:29 09:29 04:26 WBC 8.1 7.9 Hgb 14.4 11.2 L Sodium 143 Potassium 3.9 BUN 9.0 Creatinine 0.9 Glucose 105 06/18/17 04:26 WBC Hgb Sodium 138 Potassium 4.3 BUN 10.0 Creatinine 0.9 Glucose 126 H - Microbiology Microbiology 06/17/17 11:25 Sputum, Expectorated Gram Stain - Final 06/17/17 11:25 Sputum, Expectorated Sputum Culture - Final Normal Respiratory Lore including Yeast Present - Pathology Sigmoid colon: Invasive moderately differentiated adenocarcinoma History of Present Illness HPI: Mr. Roberts is an 82-year-old gentleman who recently had noted a component of some rectal bleeding. He did present to his primary care physician who appropriately proceeded with endoscopic evaluation. Unfortunately, the patient was found to have a mass at about 15-20 cm from the anal verge. This mass was highly suspicious for that of an adenocarcinoma. Biopsies were obtained from the mass and, unfortunately, did confirm the suspicion that he did indeed have a colonic malignancy. The patient did undergo preoperative evaluation including a CT scan of his chest, abdomen and pelvis. There was no evidence for metastatic disease. The patient presents today to undergo surgical management of his newly diagnosed colonic adenocarcinoma. Hospital Course This is a general summary of the patient's hospital course. For more details refer to the complete medical record. Hospital course: 06/15/17 09:19 POD#1 Doing well for the long difficult surgery yesterday. HTN during the night till Coreg was given. Urine very dark, from ureteral stents, cleared up after bladder irrigation. Crackles bilaterally, Sat 97% room air, encourage IS, Acapella, breathing treatment, etc, RT has been consulted Will watch the urine output/color, HTN, Resp status, etc, Daily labs. 06/15 82-year-old gentleman status post low anterior resection, coloproctostomy, takedown and mobilization of splenic flexure, wedge liver biopsy. Overall patient doing well. PLAN Will give a normal saline bolus secondary to his low urinary output. If patient does not respond to a fluid bolus, will then give diuretic. Will begin clear liquids. Otherwise, continue with current care. I am pleased with the patient's appearance this morning. 06/16/17 07:56 06/16/17 07:59 POD #2 He is making progress, but no bowel activity. Denies nausea, will allow Breeze and Boost with the clear liquids. Dulcolax tabs PO x1 today, hope to gently stimulate bowel activity. VSS, Labs reviewed He is ambulating the length of the CCU Will consider transfer to surgical floor. PT/OT ordered for strength and endurance. 06/17/17 11:44 POD #3 VSS, WBC 8.7, HGB 11.6 Sputum culture collected today, thick yellow/etienne mucous Incision with old blood, no erythema or ecchymosis at this time Evans DC'd this am and he is voiding without difficulty. Tolerating full liquid diet, good bowel sounds, will decrease IVF advance to regular for dinner. DC BODY WELDER PT recommends daily IP therapy for strengthening and endurance. 06/18/17 Discharged, see discharge orders. DVT Prophylaxis: SCD's, Lovenox GI Prophylaxis: Protonix Discharge Plan - Med Rec/Dispo Referrals/Follow Up: Cornelio Sanon MD [Physician] - 06/30/17 2:30 pm Cynthia Instructions: Colectomy (DC) Prescriptions: Continue Aspirin [Adult Low Dose Aspirin EC] 81 mg PO DAILY Omeprazole [Prilosec] 5 mg PO DAILY Triamcinolone 0.1% Cream 15 G [Kenalog] 1 applicatio TOP DAILY Carvedilol 12.5 mg PO BID [place]-3/Dha/Epa/Fish Oil [Fish Oil 1,000 mg Softgel] 3,000 mg PO BID Multivitamin [Multivitamins] 1 cap PO DAILY Discontinued cephALEXin [Keflex] 500 mg PO TID #21 capsule No Action Zyrtec (Cetirizine) 10 mg tablet 10 mg PO DAILY PRN - Disposition 86 Home Health Service
== END 2017-06-18 13:10 | disposition home health service (06) | DRG 330 ==
LOC: CCU 08:50 → SRG 06-16 18:13
PROVIDERS: ADMIT Surgery; ATTEND Surgery